=== PATIENT | female | born 1950 | race Caucasian/White ===

== ENCOUNTER 2019-02-17 19:11 | Emergency (ER) | payer MEDICARE, OTHER ==
--- NOTE | 2019-02-17 19:45 | ER Document Report ---
ED Medical Screen (RME) - General Chief Complaint: Abdominal Pain Stated Complaint: ABDOMINAL PAINS Time Seen by Provider: 02/17/19 19:43 Primary Care Provider: ISABELA URBAN MD [Primary Care Provider] - Follow up as needed Mode of Arrival: Ambulatory Information source: Patient Notes: Patient presents the emergency department with complaints of left lower quad a bdominal pain. Reports she has had 3 flareups since July. She reports her provider has been treating her for diverticulitis but she has never had a CT scan to confirm it. She reports this is her third flareup but she has not been vomiting this time but reports same pain. Also reports history of constipation and diarrhea. She would like a CT scan. I have greeted and performed a rapid initial assessment of this patient. A comprehensive ED assessment and evaluation of the patient, analysis of test results and completion of the medical decision making process will be conducted by additional ED providers. Dictation of this chart was performed using voice recognition software; therefore, there may be some unintended grammatical errors. TRAVEL OUTSIDE OF THE [place] IN LAST 30 DAYS: No - Related Data Allergies/Adverse Reactions: No Known Allergies Allergy (Verified 02/17/19 19:12) Past Medical History - Past Medical History Cardiac Medical History: Denies: Hx Heart Attack, Hx Hypertension Pulmonary Medical History: Denies: Hx Asthma Neurological Medical History: Denies: Hx Cerebrovascular Accident, Hx Seizures Renal/ Medical History: Denies: Hx Peritoneal Dialysis GI Medical History: Reports: Hx Hepatitis - AT AGE 8 hepatitis A, Hx Hiatal Hernia. Denies: Hx Ulcer Infectious Medical History: Reports: Hx Hepatitis - AT AGE 8 hepatitis A Past Surgical History: Denies: Hx Hysterectomy, Hx Mastectomy, Hx Open Heart Surgery, Hx Pacemaker Physical Exam - Vital signs Vitals: Temp Pulse Resp BP Pulse Ox 97.7 F 68 16 144/71 H 98 02/17/19 19:15 02/17/19 19:15 02/17/19 19:15 02/17/19 19:15 02/17/19 19:15 Course - Vital Signs Vital signs: Temp Pulse Resp BP Pulse Ox 97.7 F 68 16 144/71 H 98 02/17/19 19:15 02/17/19 19:15 02/17/19 19:15 02/17/19 19:15 02/17/19 19:15 Doctor's Discharge - Discharge Referrals: ISABELA URBAN MD [Primary Care Provider] - Follow up as needed
[2019-02-17 20:34] LABS: APPEARANCE,URINE CLOUDY; BILIRUBIN,URINE NEGATIVE (NEGATIVE); COLOR,URINE YELLOW; GLUCOSE, URINE NEGATIVE (NEGATIVE); KETONES,URINE 20 mg/dL (NEGATIVE); LEUKOCYTE ESTERASE,URINE TRACE (NEGATIVE); NITRITE,URINE NEGATIVE (NEGATIVE); PROTEIN,URINE NEGATIVE (NEGATIVE); URINE SPECIFIC GRAVITY 1.014; UROBILINOGEN,URINE NEGATIVE mg/dL (<2.0)
[2019-02-17 20:35] LABS: ABSOLUTE EOSINOPHILS # (AUTO) 0.3 10^3/uL (0.0-0.6); ABSOLUTE LYMPHOCYTES (AUTO) 2.3 10^3/uL (0.5-4.7); ABSOLUTE MONOCYTES (AUTO) 0.7 10^3/uL (0.1-1.4); ABSOLUTE NEUT (AUTO) 3.9 10^3/uL (1.7-8.2); BASOPHILS % (AUTO) 0.7 % (0-2); EOSINOPHILS % (AUTO) 3.7 % (0-6); HEMATOCRIT 42.7 % (36.0-47.0); HEMOGLOBIN 14.5 g/dL (12.0-15.5); LYMPHOCYTES % (AUTO) 31.7 % (13-45); MEAN CORPUSCULAR HEMOGLOBIN 29.9 pg (27.0-33.4); MEAN CORPUSCULAR HGB CONC 33.9 g/dL (32.0-36.0); MEAN CORPUSCULAR VOLUME 88 fl (80-97); MONOCYTES % (AUTO) 9.8 % (3-13); PLATELET COUNT 281 10^3/uL (150-450); RED BLOOD COUNT 4.85 10^6/uL (3.72-5.28); RED CELL DISTRIBUTION WIDTH 13.4 % (11.5-14.0); SEGMENTED NEUTROPHILS % (AUTO) 54.1 % (42-78); TOTAL CELLS COUNTED % (AUTO) 100 %; WHITE BLOOD COUNT 7.3 10^3/uL (4.0-10.5)
[2019-02-17 20:53] LABS: ALANINE AMINOTRANSFERASE 49 U/L (9-52); ALKALINE PHOSPHATASE 85 U/L (38-126); ANION GAP 10 (5-19); ASPARTATE AMINO TRANSFERASE 41 U/L (14-36); BILIRUBIN,DIRECT 0.2 mg/dL (0.0-0.4); BILIRUBIN,TOTAL 0.4 mg/dL (0.2-1.3); BLOOD UREA NITROGEN 13 mg/dL (7-20); CALCIUM 10.3 mg/dL (8.4-10.2); CARBON DIOXIDE 28 mmol/L (22-30); CHLORIDE 104 mmol/L (98-107); GLUCOSE 82 mg/dL (75-110); LIPASE 110.1 U/L (23-300); POTASSIUM 3.8 mmol/L (3.6-5.0); TOTAL PROTEIN 7.6 g/dL (6.3-8.2)
--- NOTE | 2019-02-17 21:39 | RADIOLOGY REPORT (SQ) ---
EXAM DESCRIPTION: CT ABDOMEN PELVIS WITH IV CONTRAST COMPLETED DATE/TME: 02/17/2019 19:45 CLINICAL HISTORY: 68 years, Female, abd pain COMPARISON: None. TECHNIQUE: Contrast enhanced CT of the abdomen/pelvis was performed. Coronal and sagittal reformations were acquired. Images stored on PACS. All CT scanners at this facility use dose modulation, iterative reconstruction, and/or weight based dosing when appropriate to reduce radiation dose to as low as reasonably achievable (ALARA). [facility]: Dose Right [facility]: CareDose [facility]: Dose Right [facility]: Teradose 4D [facility]: [employer] LIMITATIONS: None. FINDINGS: Limited evaluation of the lower chest reveals clear lung bases. There is a tiny hiatal hernia. The liver is diffusely low in attenuation relative to the spleen. No focal liver lesions are appreciated. The spleen and pancreas appear normal. The gallbladder is absent. Visualized is nodular enlargement of the medial limb of the right adrenal gland measuring up to 1.3 x 0.9 cm in size. An additional left adrenal nodule is noted measuring 1.1 x 1.0 cm in size on image 20 of series 3. 4 mm mm calcification is noted about the upper pole of the right kidney. An additional 5 mm calculus is evident within the interpolar region of the left kidney. Both kidneys otherwise enhance symmetrically. However, there is a 6 mm calculus located at the left UVJ on image 74 of series 3. No concomitant hydronephrosis/hydroureter is evident at this time. The urinary bladder is collapsed, thus its evaluation is limited. Uterus is absent. Neither ovary is visualized. The small and large bowel appear normal in caliber without areas of focal wall thickening. No evidence of bowel obstruction. The appendix is normal. A small fat-containing umbilical hernia is evident. Calcifications are noted about the abdominal aorta. No lymphadenopathy or drainable fluid collections are appreciated. Bone windows show no destructive osseous lesions. IMPRESSION: 6 mm calculus located at the left UVJ. No concurrent hydronephrosis/hydroureter at this time. Additional nonobstructive bilateral nephrolithiasis. Suspect hepatic steatosis. Indeterminate bilateral adrenal nodules. Current recommendations suggest a follow-up adrenal protocol CT in one year to document continued stability/confirm that these represent adrenal adenomas. That these remain stable for more than one year, then no further follow-up will be necessary. TECHNICAL DOCUMENTATION: Quality ID # [id number]: Final reports with documentation of one or more dose reduction techniques (e.g., Automated exposure control, adjustment of the mA and/or kV according to patient size, use of iterative reconstruction technique) copyright 2011 [employer]- All Rights Reserved
--- NOTE | 2019-02-17 22:21 | ER Document Report ---
ED General - General Chief Complaint: Abdominal Pain Stated Complaint: ABDOMINAL PAINS Time Seen by Provider: 02/17/19 19:43 Mode of Arrival: Ambulatory TRAVEL OUTSIDE OF THE [place] IN LAST 30 DAYS: No - HPI Notes: Patient is a 68-year-old female that presents to the emergency department for chief complaint of left lower quadrant pain. Patient states she had acute onset of pain in her left lower quadrant that radiates into her groin this morning. She reports pressure with urination and some urinary frequency. She denies any fever, chills, nausea, vomiting and diarrhea. Patient states she has had similar symptoms in July 2018 and December 2018 which she self diagnosed as diverticulitis. Patient states her pain is sharp and constant but has improved since being in the ED. She denied any aggravating or relieving factors. Past Medical History: Reviewed in chart Past Surgical History: Reviewed in chart Social History: Denies drugs alcohol and tobacco Family History: Reviewed and noncontributory for presenting illness Allergies: Reviewed, see documented allergy list. REVIEW OF SYSTEMS: CONSTITUTIONAL : No fever No chills No diaphoresis No recent illness EENT: No vision changes No congestion No sore throat CARDIOVASCULAR: No chest pain No palpitations RESPIRATORY: No shortness of breath No cough No difficulty breathing GASTROINTESTINAL: abdominal pain No nausea No vomiting No diarrhea GENITOURINARY: dysuria No hematuria No difficulty urinating MUSCULOSKELETAL: No back pain No leg pain No arm pain SKIN: No rashes No lesions LYMPHATIC: No swollen, enlarged glands. NEUROLOGICAL: No lightheadedness No headache No weakness No paresthesias PSYCHIATRIC: No anxiety No depression PHYSICAL EXAMINATION: Vital signs reviewed, nursing noted reviewed. GENERAL: Well-appearing, well-nourished and in no acute distress. HEAD: Atraumatic, normocephalic. EYES: Eyes appear normal, extraocular movements intact, sclera anicteric, conjunctiva are normal. ENT: nares patent, oropharynx clear without exudates. Moist mucous membranes. NECK: Normal range of motion, supple without lymphadenopathy LUNGS: Breath sounds clear to auscultation bilaterally and equal. No wheezes rales or rhonchi. HEART: Regular rate and rhythm without murmurs ABDOMEN: Soft, mild left lower quadrant tenderness, normoactive bowel sounds. No rebound, guarding, or rigidity. No masses appreciated. EXTREMITIES: Nontender, good range of motion, no pitting or edema. NEUROLOGICAL: No focal neurological deficits. Moves all extremities spontaneously Motor and sensory grossly intact on exam. PSYCH: Normal mood, normal affect. SKIN: Warm, Dry, normal turgor, no rashes or lesions noted on exposed skin - Related Data Allergies/Adverse Reactions: No Known Allergies Allergy (Verified 02/17/19 19:12) Past Medical History - General Information source: Patient - Social History Smoking Status: Never Smoker Chew tobacco use (# tins/day): No Frequency of alcohol use: None Drug Abuse: None Family History: Reviewed & Not Pertinent Patient has suicidal ideation: No Patient has homicidal ideation: No - Past Medical History Cardiac Medical History: Denies: Hx Heart Attack, Hx Hypertension Pulmonary Medical History: Denies: Hx Asthma Neurological Medical History: Denies: Hx Cerebrovascular Accident, Hx Seizures Renal/ Medical History: Denies: Hx Peritoneal Dialysis GI Medical History: Reports: Hx Hepatitis - AT AGE 8 hepatitis A, Hx Hiatal Hernia. Denies: Hx Ulcer Infectious Medical History: Reports: Hx Hepatitis - AT AGE 8 hepatitis A Past Surgical History: Denies: Hx Hysterectomy, Hx Mastectomy, Hx Open Heart Surgery, Hx Pacemaker Physical Exam - Vital signs Vitals: Temp Pulse Resp BP Pulse Ox 97.7 F 68 16 144/71 H 98 02/17/19 19:15 02/17/19 19:15 02/17/19 19:15 02/17/19 19:15 02/17/19 19:15 Course - Re-evaluation Re-evalutation: 02/17/19 23:00 Vitals reviewed. Nursing notes reviewed. Patient CT scan shows a 6 mm ureterolithiasis. She has normal renal function. She does have a small urinary tract infection as well but no signs of sepsis. She is well-appearing with stable vital signs. Patient will be started on Keflex and Flomax for her UTI. She will be given Armbrust and naproxen for pain control. She will be referred to urology for follow-up if symptoms are persisting. Patient counseled on return precautions and verbalized understanding. She is stable and improved at discharge. Laboratory 02/17/19 02/17/19 02/17/19 20:14 20:14 20:14 WBC 7.3 RBC 4.85 Hgb 14.5 Hct 42.7 MCV 88 MCH 29.9 MCHC 33.9 RDW 13.4 Plt Count 281 Seg Neutrophils % 54.1 Lymphocytes % 31.7 Monocytes % 9.8 Eosinophils % 3.7 Basophils % 0.7 Absolute Neutrophils 3.9 Absolute Lymphocytes 2.3 Absolute Monocytes 0.7 Absolute Eosinophils 0.3 Absolute Basophils 0.0 Sodium 142.0 Potassium 3.8 Chloride 104 Carbon Dioxide 28 Anion Gap 10 BUN 13 Creatinine 0.67 Est GFR ( Amer) > 60 Est GFR (Non-Af Amer) > 60 Glucose 82 Calcium 10.3 H Total Bilirubin 0.4 Direct Bilirubin 0.2 Neonat Total Bilirubin Not Reportable Neonat Direct Bilirubin Not Reportable Neonat Indirect Bili Not Reportable AST 41 H ALT 49 Alkaline Phosphatase 85 Total Protein 7.6 Albumin 5.0 Lipase 110.1 Urine Color YELLOW Urine Appearance CLOUDY Urine pH 5.0 Ur Specific [place] 1.014 Urine Protein NEGATIVE Urine Glucose (UA) NEGATIVE Urine Ketones 20 H Urine Blood NEGATIVE Urine Nitrite NEGATIVE Urine Bilirubin NEGATIVE Urine Urobilinogen NEGATIVE Ur Leukocyte Esterase TRACE H Urine WBC (Auto) 23 Urine RBC (Auto) 3 Urine Bacteria (Auto) 3+ Squamous Epi Cells Auto 7 Urine Mucus (Auto) MOD Urine Ascorbic Acid 20 H Abdomen/Pelvis CT 02/17/19 19:45 IMPRESSION: 6 mm calculus located at the left UVJ. No concurrent hydronephrosis/hydroureter at this time. Additional nonobstructive bilateral nephrolithiasis. Suspect hepatic steatosis. Indeterminate bilateral adrenal nodules. Current recommendations suggest a follow-up adrenal protocol CT in one year to document continued stability/confirm that these represent adrenal adenomas. That these remain stable for more than one year, then no further follow-up will be necessary. TECHNICAL DOCUMENTATION: Quality ID # 436: Final reports with documentation of one or more dose reduction techniques (e.g., Automated exposure control, adjustment of the mA and/or kV according to patient size, use of iterative reconstruction technique) copyright 2011 [employer]- All Rights Reserved - Vital Signs Vital signs: Temp Pulse Resp BP Pulse Ox 97.7 F 68 16 144/71 H 98 02/17/19 19:15 02/17/19 19:15 02/17/19 19:15 02/17/19 19:15 02/17/19 19:15 - Laboratory Result Diagrams: 02/17/19 20:14 02/17/19 20:14 Laboratory results interpreted by me: 02/17/19 02/17/19 20:14 20:14 Calcium 10.3 H AST 41 H Urine Ketones 20 H Ur Leukocyte Esterase TRACE H Urine Ascorbic Acid 20 H Discharge - Discharge Clinical Impression: Ureterolithiasis, Acute UTI, Adrenal nodule Condition: Stable Disposition: HOME, SELF-CARE Instructions: Kidney Stone ([facility]), Urinary Tract Infection ([facility]) Additional Instructions: Please return to the emergency department if you have any worsening, or concern of your symptoms. Please return to the emergency department if you develop chest pain, difficulty breathing, severe abdominal pain, or ongoing vomiting. Please follow-up with your primary care physician in 2-3 days and any other recommended physicians. If prescribed, take all medications as directed. If you have any questions or concerns do not hesitate to return the emergency department for evaluation. There were nodules seen on your adrenal glands which sit on top of your kidneys. It is recommended that you get specific imaging via CT scan in 1 year to monitor these nodules. Please discuss these findings with your primary care doctor to establish follow-up care. Prescriptions: Cephalexin Monohydrate [Keflex 500 mg Capsule] 500 mg PO Q6H 7 Days capsule Hydrocodone/Acetaminophen [Armbrust 5-325 Tablet] 1 each PO Q6 #8 tablet Naproxen 500 mg PO BID PRN #20 tablet PRN Reason: pain Tamsulosin HCl [Flomax 0.4 mg Cap.sr] 0.4 mg PO DAILY #7 cap.sr.24h Referrals: ERIC WALKER MD [NO LOCAL MD] - Follow up as needed ISABELA URBAN MD [ACTIVE STAFF] - Follow up in 3-5 days
[2019-02-17] MEDS ORDERED: CEPHALEXIN 500 MG CAPSULE PO ONE (22:56)
[2019-02-17] MEDS ORDERED: TAMSULOSIN HCL 0.4 MG CAP.SR.24H PO ONE (22:56)
[2019-02-17 23:16] VITALS: BP 154/72
== END 2019-02-17 23:14 | disposition home or self-care (01) ==
LOC: ER 19:11
DX: N20.2 Calculus of kidney with calculus of ureter (principal); N39.0 Urinary tract infection, site not specified; E27.9 Disorder of adrenal gland, unspecified; R10.32 Left lower quadrant pain; R35.0 Frequency of micturition; R30.0 Dysuria
CPT/HCPCS: 99284; 36415; 83690; 85025; 80053; 81001; 74177; A9270 ×2

== ENCOUNTER → 2020-03-22 | Outpatient (CLI) | payer MEDICARE, OTHER ==
--- NOTE | 2020-03-22 09:50 | RADIOLOGY REPORT (SQ) ---
EXAM DESCRIPTION: CT ABDOMEN COMBO IMAGES COMPLETED DATE/TIME: 03/22/2020 9:08 am REASON FOR STUDY: D49.7 NEOPLASM OF UNSPECIFIED BEHAVIOR OF ENDOCRINE GLANDS AND OTHER PARTS D49.7 NEOPLM OF UNSP BEHAV OF ENDO GLANDS AND OTH PRT NERVOU N20.0 CALCULUS OF KIDNEY COMPARISON: 03/04/2020 TECHNIQUE: CT scan of the abdomen performed with and without intravenous contrast, and oral contras t. Contrasted imaging performed using helical scanning technique with dynamic intravenous contrast in jection. Images reviewed with lung, soft tissue, and bone windows. Reconstructed coronal and sagittal MPR images reviewed. Delayed images for evaluation of the urinary system also acquired and evaluated . All images stored on PACS. All CT scanners at this facility use dose modulation, iterative reconstruction, and/or weight based d osing when appropriate to reduce radiation dose to as low as reasonably achievable (ALARA). [facility]: Dose Right [facility]: CareDose [facility]: Dose Right [facility]: Teradose 4D [facility]: [employer] CONTRAST TYPE AND DOSE: contrast/concentration: Isovue 350.00 mmol/ml; Total Contrast Delivered: 85. 0 ml; Total Saline Delivered: 69.0 ml RENAL FUNCTION: Creatinine 0.7 RADIATION DOSE: CT Rad equipment meets quality standard of care and radiation dose reduction techniq ues were employed. CTDIvol: 8.9 - 9.1 mGy. DLP: 935 mGy-cm.. LIMITATIONS: None. FINDINGS: LOWER CHEST: No significant findings. No nodules or infiltrates. LIVER: Normal size. No masses. No dilated ducts. SPLEEN: Normal size. No focal lesions. PANCREAS: No masses. No significant calcifications. No adjacent inflammation or peripancreatic fluid collections. Pancreatic duct not dilated. GALLBLADDER: Surgically absent. ADRENAL GLANDS: Stable bilateral adrenal gland and nodular opacities which are low density on the non contrast exam measuring less than 10 Hounsfield units bilaterally and compatible with adenomas. RIGHT KIDNEY AND URETER: No solid masses. Nonobstructing interpolar stone measuring 6 mm. No hydr onephrosis or hydroureter. LEFT KIDNEY AND URETER: No solid masses. Nonobstructing scattered stones, largest within the interp olar region measuring 6 mm. No hydronephrosis or hydroureter. AORTA AND VESSELS: No aneurysm. No dissection. Renal arteries, SMA, celiac without stenosis. RETROPERITONEUM: No retroperitoneal adenopathy, hemorrhage or masses. BOWEL AND PERITONEAL CAVITY: No masses or inflammatory changes. No free fluid or peritoneal masses. Likely small hiatal hernia. APPENDIX: Not visualized. ABDOMINAL WALL: Small fat containing midline umbilical hernia. No soft tissue masses. BONES: No acute bony abnormality. No discrete lytic or blastic osseous lesions. OTHER: No other significant finding. IMPRESSION: 1. No evidence of acute intra-abdominal/pelvic process. 2. Stable bilateral low-density adrenal lesions compatible with adenomas. 3. Nonobstructing bilateral renal stones. TECHNICAL DOCUMENTATION: JOB ID: [id number] Quality ID # [id number]: Final reports with documentation of one or more dose reduction techniques (e.g., Au tomated exposure control, adjustment of the mA and/or kV according to patient size, use of iterative reconstruction technique) 2010 [employer]- All Rights Reserved Reading location - IP/workstation name: [email or web address]
== END ==
LOC: RAD 08:40
PROVIDERS: ATTEND Urology
DX: D49.7 Neoplasm of unspecified behavior of endocrine glands and other parts of nervous system (principal); N20.0 Calculus of kidney
CPT/HCPCS: 74170; 82565